=== PATIENT | female | born 1995 | race Caucasian/White ===

== ENCOUNTER 2017-10-08 15:06 | Outpatient (CLI) | payer MEDICAID ==
[2017-10-08] MEDS: TERBUTALINE 1 MG/ML INJ SC (18:47)
[2017-10-08] MEDS: LACTATED RINGER'S 1,000 ML IV* (19:03)
[2017-10-08 19:35] LABS: ADD MAN DIFF? NO
[2017-10-08 19:36] LABS: ABNORMAL IP MESSAGE 1; BASOPHIL # 0.1 10^3/ul (0.0-0.1); BASOPHILS % 0.5 % (0.0-2.0); EOSINOPHILS # 0.1 10^3/ul (0.0-0.5); EOSINOPHILS % 0.4 % (0.0-7.0); HEMATOCRIT 29.6 % (37.0-47.0); LYMPHOCYTES # 5.8 10^3/ul (0.8-2.9); LYMPHOCYTES % 36.3 % (18.0-55.0); MEAN CORPUSCULAR HEMOGLOBIN 20.8 pg (29.0-33.0); MEAN CORPUSCULAR HGB CONC 30.4 g/dl (32.0-37.0); MEAN CORPUSCULAR VOLUME 68.4 fl (72.0-104.0); MONOCYTES % 6.1 % (0.0-13.0); NEUTROPHIL # 8.9 10^3/ul (1.6-7.5); NEUTROPHILS % 56.1 % (30.0-74.0); NUCLEATED RED BLOOD CELLS # 0.1 10^3/ul (0.0-0.0); NUCLEATED RED BLOOD CELLS% 0.4 /100WBC (0.0-0.0); PLATELET COUNT 342 10^3/UL (140-415); RED BLOOD COUNT 4.33 10^6/ul (4.20-5.40); RED CELL DISTRIBUTION WIDTH 17.8 % (11.5-14.5)
[2017-10-08 19:36] LABS: WHITE BLOOD COUNT 15.9 10^3/ul (4.8-10.8)
[2017-10-08 19:52] LABS: POSITIVE DIFF @See below
== END 2017-10-08 21:42 | disposition home or self-care (01) ==
LOC: OBT 15:06 → L-D 15:08 → OBT 21:42
DX: O26.893 Other specified pregnancy related conditions, third trimester (principal); R05 Cough; J02.9 Acute pharyngitis, unspecified; Z3A.35 35 weeks gestation of pregnancy
CPT/HCPCS: 36415; 76818; 85025; 87880; 96360; 96361; 96372

== ENCOUNTER 2017-10-15 11:22 | Inpatient (IN) | payer MEDICAID, OTHER ==
[2017-10-15] MEDS ORDERED: TERBUTALINE 1 ML (12:36)
[2017-10-15 12:51] LABS: ADD MAN DIFF? NO
[2017-10-15] MEDS: TERBUTALINE 1 MG/ML INJ SC (12:52)
[2017-10-15] MEDS: BETAMET NA PHOS/AC(6 MG/ML) 5ML INJ IM (12:53)
[2017-10-15] MEDS: LACTATED RINGER'S 1,000 ML IV ×2 (12:54→15:43)
[2017-10-15 12:55] LABS: ABNORMAL IP MESSAGE 1; BASOPHIL # 0.1 10^3/ul (0.0-0.1); BASOPHILS % 0.6 % (0.0-2.0); EOSINOPHILS # 0.1 10^3/ul (0.0-0.5); EOSINOPHILS % 0.5 % (0.0-7.0); HEMATOCRIT 26.9 % (37.0-47.0); HEMOGLOBIN 8.1 g/dl (12.0-16.0); LYMPHOCYTES # 4.3 10^3/ul (0.8-2.9); MEAN CORPUSCULAR HEMOGLOBIN 20.6 pg (29.0-33.0); MEAN CORPUSCULAR HGB CONC 30.1 g/dl (32.0-37.0); MEAN CORPUSCULAR VOLUME 68.3 fl (72.0-104.0); MEAN PLATELET VOLUME 12.4 fl (7.4-10.4); MONOCYTE # 0.6 10^3/ul (0.3-0.9); MONOCYTES % 5.3 % (0.0-13.0); NEUTROPHIL # 6.5 10^3/ul (1.6-7.5); NEUTROPHILS % 55.7 % (30.0-74.0); NUCLEATED RED BLOOD CELLS # 0.1 10^3/ul (0.0-0.0); NUCLEATED RED BLOOD CELLS% 0.4 /100WBC (0.0-0.0); PLATELET COUNT 312 10^3/UL (140-415); RED BLOOD COUNT 3.94 10^6/ul (4.20-5.40); RED CELL DISTRIBUTION WIDTH 18.1 % (11.5-14.5)
[2017-10-15 12:55] LABS: WHITE BLOOD COUNT 11.7 10^3/ul (4.8-10.8)
[2017-10-15 12:58] LABS: POSITIVE DIFF @See below
[2017-10-15] MEDS ORDERED: METHYLERGONOVINE 0.2 MG INJ IM ×2 (13:00→22:00)
[2017-10-15] MEDS ORDERED: IBUPROFEN 600 MG TAB PO (13:00)
[2017-10-15] MEDS ORDERED: OXYTOCIN 30 UNITS/LR 500 ML IV ×2 (13:00→22:00)
[2017-10-15] MEDS ORDERED: OXYCODONE/ASPIRIN (4.88/325) TAB PO (13:00)
[2017-10-15] MEDS ORDERED: CARBOPROST 250 MCG INJ IM ×2 (13:00→22:00)
[2017-10-15] MEDS ORDERED: BUTORPHANOL 2 MG INJ IV (13:00)
[2017-10-15] MEDS ORDERED: MISOPROSTOL 200 MCG TAB PR ×2 (13:00→22:00)
[2017-10-15 13:14] LABS: INR 0.85; PROTIME 11.7 Sec (11.9-14.9); PT RATIO 0.9
[2017-10-15 13:15] LABS: PARTIAL THROMBOPLASTIN TIME 25.9 Sec (25.0-35.0)
[2017-10-15 13:41] LABS: HEPATITIS B SURFACE ANTIGEN NEGATIVE (NEGATIVE)
[2017-10-15] MEDS ORDERED: DIPHENHYDRAMINE 50 MG INJ IV (16:00)
[2017-10-15] MEDS ORDERED: NALOXONE (0.4 MG/ML) INJ IV (16:00)
[2017-10-15] MEDS ORDERED: EPHEDrine SULFATE 50 MG/5 ML SYG IV (16:00)
[2017-10-15] MEDS ORDERED: ONDANSETRON 4 MG INJ IV (16:00)
[2017-10-15] MEDS: FENTAnyl 2MCG/ML-ROPIV 0.2% 100 ML BAG EPI (19:39)
[2017-10-15] MEDS ORDERED: CLINDAMYCIN 900 MG/D5W (PMX) 50 ML IVPB (19:48)
[2017-10-15] MEDS: CLINDAMYCIN 900 MG/D5W (PMX) 50 ML IVPB (20:19)
[2017-10-15] MEDS: LIDOCAINE 1% (MPF) 30 ML INJ INJ (20:19)
[2017-10-15] MEDS: OXYTOCIN 30 UNITS/LR 500 ML IV ×2 (20:27→20:28)
[2017-10-15] MEDS ORDERED: LACTATED RINGER'S 1,000 ML IV* (21:55)
[2017-10-15] MEDS ORDERED: DIBUCAINE 1% 30 GM OINT PR (22:00)
[2017-10-15] MEDS ORDERED: HYDROCODONE/APAP (5/325) TAB PO ×2 (22:00)
[2017-10-15] MEDS ORDERED: ZOLPIDEM 5 MG TAB PO (22:00)
[2017-10-15 22:30] LABS: RAPID PLASMA REAGIN NONREACTIVE (NR)
[2017-10-15] MEDS: LANOLIN 7 GM TUBE TOP (23:37)
[2017-10-15] MEDS: IBUPROFEN 600 MG TAB PO (23:37)
[2017-10-15] MEDS: MAGNESIUM HYDROXIDE 30ML CUP PO (23:37)
[2017-10-15] MEDS: WITCH HAZEL/GLYCERIN PAD PR (23:37)
[2017-10-15] MEDS: BENZOCAINE 20% 56 ML SPRAY TOP (23:38)
[2017-10-16] MEDS: IBUPROFEN 600 MG TAB PO ×4 (05:46→23:43)
[2017-10-16 09:07] LABS: ADD MAN DIFF? NO
[2017-10-16] MEDS: SENNA/DOCUSATE NA (8.6MG/50MG) TAB PO ×2 (09:09→20:57)
[2017-10-16] MEDS: NITROFURANTOIN (SR) 100 MG CAP PO ×2 (09:09→20:57)
[2017-10-16] MEDS: MAGNESIUM HYDROXIDE 30ML CUP PO ×2 (09:09→20:57)
[2017-10-16 09:16] LABS: ABNORMAL IP MESSAGE 1; BASOPHILS % 0.1 % (0.0-2.0); HEMATOCRIT 22.4 % (37.0-47.0); HEMOGLOBIN 7.1 g/dl (12.0-16.0); LYMPHOCYTES % 16.3 % (18.0-55.0); MEAN CORPUSCULAR HEMOGLOBIN 21.1 pg (29.0-33.0); MEAN CORPUSCULAR HGB CONC 31.7 g/dl (32.0-37.0); MEAN CORPUSCULAR VOLUME 66.7 fl (72.0-104.0); MEAN PLATELET VOLUME 12.2 fl (7.4-10.4); MONOCYTE # 0.6 10^3/ul (0.3-0.9); MONOCYTES % 3.3 % (0.0-13.0); NEUTROPHIL # 14.6 10^3/ul (1.6-7.5); NEUTROPHILS % 79.2 % (30.0-74.0); NUCLEATED RED BLOOD CELLS # 0.1 10^3/ul (0.0-0.0); NUCLEATED RED BLOOD CELLS% 0.5 /100WBC (0.0-0.0); PLATELET COUNT 293 10^3/UL (140-415); RED BLOOD COUNT 3.36 10^6/ul (4.20-5.40)
[2017-10-16 09:16] LABS: WHITE BLOOD COUNT 18.5 10^3/ul (4.8-10.8)
[2017-10-16 09:22] LABS: POSITIVE DIFF @See below
[2017-10-17] MEDS: IBUPROFEN 600 MG TAB PO ×3 (05:37→17:54)
[2017-10-17] MEDS: MAGNESIUM HYDROXIDE 30ML CUP PO (08:56)
[2017-10-17] MEDS: NITROFURANTOIN (SR) 100 MG CAP PO (08:56)
[2017-10-17] MEDS: SENNA/DOCUSATE NA (8.6MG/50MG) TAB PO (08:56)
[2017-10-17 09:33] LABS: ABNORMAL IP MESSAGE 1; HEMATOCRIT 21.5 % (37.0-47.0); MEAN CORPUSCULAR HGB CONC 31.2 g/dl (32.0-37.0); MEAN CORPUSCULAR VOLUME 67.4 fl (72.0-104.0); MEAN PLATELET VOLUME 12.6 fl (7.4-10.4); NUCLEATED RED BLOOD CELLS% 0.4 /100WBC (0.0-0.0); PLATELET COUNT 297 10^3/UL (140-415); RED BLOOD COUNT 3.19 10^6/ul (4.20-5.40); RED CELL DISTRIBUTION WIDTH 17.8 % (11.5-14.5)
[2017-10-17 09:33] LABS: WHITE BLOOD COUNT 16.1 10^3/ul (4.8-10.8)
[2017-10-17 09:38] LABS: ADD MAN DIFF? YES; HEMOGLOBIN 6.7 g/dl (12.0-16.0); POSITIVE DIFF @See below
[2017-10-17] MEDS: MEASLES,MUMPS,RUBELLA VACCINE INJ SC* (09:49)
[2017-10-17] MEDS: DIPHTH/TET/ACEL PERTUSS (ADULT) 0.5 ML VIAL IM* (09:49)
[2017-10-17] MEDS: VARICELLA VACCINE LIVE/PF 1,350 UNIT/0.5 ML ML SC* (09:49)
[2017-10-17 12:56] LABS: ANISOCYTOSIS 1+ (0-0); BAND NEUTROPHILS #M 0.6 10^3/ul (0.0-0.6); BAND NEUTROPHILS % (M) 4 % (0-10); HYPOCHROMASIA 1+ (0-0); LYMPHOCYTES #M 6.4 10^3/ul (0.8-2.9); LYMPHOCYTES % (M) 40 % (18-55); MICROCYTOSIS 2+ (0-0); MONOCYTE #M 0.3 10^3/ul (0.3-0.9); MONOCYTES % (M) 2 % (0-13); OVALOCYTES 1+ (0-0); PLATELET ESTIMATE NORMAL; POIKILOCYTOSIS 1+ (0-0); POLYCHROMASIA 1+ (0-0); SEG NEUT #M 8.5 10^3/ul (1.6-7.5); SEGMENTED NEUTROPHILS (M) % 52 % (30-74); SMUDGE%M 7 % (0-0)
== END 2017-10-17 20:35 | disposition home or self-care (01) | DRG 775 ==
LOC: OBT 11:22 → L-D 11:22 → OBT 12:28 → L-D 12:28 → PP1 22:01
PROVIDERS: Obstetrics & Gynecology
PROC: 10E0XZZ Delivery of Products of Conception, External Approach (ICD-10-PCS; principal; 2017-10-15)
PROC: 0UQGXZZ Repair Vagina, External Approach (ICD-10-PCS; 2017-10-15)
PROC: 4A1HXCZ Monitoring of Products of Conception, Cardiac Rate, External Approach (ICD-10-PCS; 2017-10-15)
DX: O60.14X0 Preterm labor third trimester with preterm delivery third trimester, not applicable or unspecified (principal); O71.4 Obstetric high vaginal laceration alone; Z3A.36 36 weeks gestation of pregnancy; Z37.0 Single live birth
CPT/HCPCS: 62319; 85025; 85610; 85730; 86592; 86850; 86900; 86901; 87340

== ENCOUNTER 2018-04-22 14:39 | Emergency (ER) | payer OTHER | END 2018-04-22 16:07 | disposition home or self-care (01) | LOC: FTE 14:39 | DX: R10.13 Epigastric pain (principal) | CPT/HCPCS: 99282 ==